=== PATIENT | female | born 1945 | race Caucasian/White ===

== ENCOUNTER → 2017-01-11 | Day surgery (SDC) | payer MEDICARE, OTHER ==
--- NOTE | 2017-01-03 06:46 | CR ---
PREOPERATIVE CONSULTATION: DATE OF CONSULTATION: 12/21/2016 CONSULTING PHYSICIAN: Dr. Ab Sanchez MD REQUESTING PHYSICIAN: Dr. Laura Moraes MD PROCEDURE: Dilation and curettage, hysteroscopy due to postmenopausal bleeding to be completed on 01/11/2017 at [facility]. HISTORY OF PRESENT ILLNESS: A very pleasant 71-year-old patient of mine presents today for preoperative evaluation and consultation in the setting of multiple medical problems. Patient overall feels well today. She denies any new symptoms or concerns. She does regularly exert herself over 3 metabolic equivalents of task (METs). She denies any chest pain or other cardiac symptoms. Has been a nonsmoker. Has had no respiratory symptoms. She denies symptoms of sleep apnea. Has never had any asthma. She does take medications as listed but has never had any complications with anesthesia and overall feels well. Only risk is a strong family history of coronary disease. PAST MEDICAL HISTORY: 1. Hyperlipidemia. 2. Gastroesophageal reflux disease (GERD). 3. Dysthymia/anxiety. 4. Hypertension (white-coat component). 5. History of impaired fasting glucose controlled with diet. PAST SURGICAL HISTORY: Cataract extraction right eye 01/05/2016, left eye 01/09/[address] 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 ALLERGIES: PENICILLIN and BIAXIN had caused hives in the past. She has had some contact dermatitis with metals. MEDICATIONS: Include: - simvastatin 40 mg by mouth nightly - omeprazole 20 mg twice a day - Prozac 20 mg daily - hydrochlorothiazide 12.5 mg by mouth daily SOCIAL HISTORY: Patient lives with her , Boo. 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 They had eight children, although one at age 3-1/2 of hydrocephalus. She has never smoked. Has about three glasses of wine per week. REVIEW OF SYSTEMS: As per history of present illness (HPI); otherwise, 10-system review is completely negative. No specific preoperative labs were requested. Prior EKG from 12/22/2015 showed sinus rhythm with some left axis deviation, minor changes, but no significant abnormalities. Most recent labs on 10/23/2016 showed hemoglobin A1c of 6.2, creatinine 0.8, BUN of 25, normal electrolytes, LFTs, controlled lipids, and a normal TSH. ASSESSMENT AND PLAN: 1. Preoperative evaluation and consultation. At this point in time, patient is relatively low to intermediate risk for a low to intermediate risk procedure. She has no major predictors of increased cardiac risk, although she does have a family history, treated hyperlipidemia, and some impaired fasting glucose. She is otherwise optimized for surgical intervention. As noted, the patient does have some white-coat hypertension, which has been monitored as an outpatient and shown to be well controlled. If you have any other questions or concerns, feel free to call me at [phone]. 2. Postmenopausal bleeding. Patient looks forward to having this completely treated and looks forward to procedure for that reason. 3. Hyperlipidemia. Doing well on simvastatin and will continue. 4. Gastroesophageal reflux disease. Unable to wean from omeprazole 20 twice a day. Will continue since it does allow good symptom control. 5. Anxiety. Feels that she is doing well on Prozac at present dose. 6. Hypertension. Although patient does have a white-coat component, generally controlled on hydrochlorothiazide. 7. Family history of early coronary disease; patient has had no symptoms suggestive of personal coronary symptoms and has been monitored closely for such due to family history. We will continue to monitor closely. 8. Ongoing care. I am going to see her as scheduled in followup. However, she understands the importance of following with Dr. Moraes and adjusting appropriate expectations for surgical intervention. If she has any problems, then she should let us know.
[~2017-01-11] VITALS: Ht 157.5 cm; Wt 78.9 kg
[~2017-01-11] MED LIST: ASPI1TAB PO; FLUO20CA8 PO; HYDR12CA PO; IBUPROFEN 600 MG TAB PO PRN; KETOROLAC 60 MG/2 ML VIAL (J1885) As Ordered ONE; LIDOCAINE 1% MDV 20ML VIAL As Ordered ONE; LIDOCAINE 2% INJ 100 MG/5 ML SDV (FOR ANES.) As Ordered ONE; LR 1,000 ML IV SCH; MEPERIDINE INJ 25 MG/ML VIAL (J2175) IV PRN; METOCLOPRAMIDE INJ 10MG/2ML VIAL (J2765) As Ordered ONE; METOCLOPRAMIDE INJ 10MG/2ML VIAL (J2765) IV PRN; MIDAZOLAM INJ 2 MG/2 ML VIAL (J2250) As Ordered ONE; MONI1CRE2 VA; OMEP20CA3 PO; ONDANSETRON 4MG/2ML VIAL (J2405) As Ordered ONE; ONDANSETRON 4MG/2ML VIAL (J2405) IV PRN; PERCOCET 5MG/325MG TAB PO PRN; PROPOFOL 200 MG/20 ML VIAL As Ordered ONE; SIMV40TA2 PO; fentaNYL 100 MCG/2 ML INJECTION (J3010) As Ordered ONE; fentaNYL 100 MCG/2 ML INJECTION (J3010) IV PRN
[2017-01-11 14:00] VITALS: BP 142/78
--- NOTE | 2017-01-11 19:05 | RO ---
DATE OF PROCEDURE: 01/11/2017 PREOPERATIVE DIAGNOSIS: Postmenopausal bleeding with abnormal ultrasound. POSTOPERATIVE DIAGNOSIS: Reassuring endometrium. There was polypoid overgrowth posteriorly which was removed with the MyoSure but not really an independent polyp. She also had a paracervical block. PROCEDURE: SURGEON: Dr. Antonette Moraes BOGGER OPERATOR: ANESTHESIA: Sedation with paracervical block. DESCRIPTION OF PROCEDURE: was brought to the operating room where sufficient sedation was given, and she was prepped, draped and positioned in the usual sterile fashion and then a paracervical block of 20 mL of 1% lidocaine without in total was given with 5 mL aliquots at 2, 4, 8 and 10 on the cervix. We then waited a full minute for that block to set up and then following this, the cervix was grasped with a single-tooth tenaculum and carefully sounded to 8 cm. It was then dilated and a hysteroscope placed. After placement of this hysteroscope, the endometrial cavity was visualized. Posteriorly, there was sort of a thickened, sort of broad flat polypoid overgrowth of the endometrium, which is not to be expected in a 71-year-old patient but it had a very smooth, bland appearance otherwise. And we were able with the MyoSure to resect this completely and to sample in a 360 degree sampling around the entirety of the uterus. The ostia themselves to the tubes were normal. There was no cervical lesion. After this, the curette was passed. There was a normal uterine cry throughout and the procedure was then ended. Estimated blood loss for the procedure was 5 mL or less. Fluid replacement was crystalloid. Complications: None. Condition and Disposition: tolerated the procedure well and was recovering in the recovery room in good condition.
== END | disposition home or self-care (01) ==
LOC: M SDC 10:55
PROVIDERS: ATTEND Obstetrics & Gynecology
DX: N95.0 Postmenopausal bleeding (principal); N85.00 Endometrial hyperplasia, unspecified; I10 Essential (primary) hypertension; E11.9 Type 2 diabetes mellitus without complications; E78.4 Other hyperlipidemia; K21.9 Gastro-esophageal reflux disease without esophagitis; F41.9 Anxiety disorder, unspecified; F32.9 Major depressive disorder, single episode, unspecified; Z88.0 Allergy status to penicillin; Z79.82 Long term (current) use of aspirin; Z79.899 Other long term (current) drug therapy
CPT/HCPCS: 58558; 88305; J1885; J2250; J2405; J2765; J3010

== ENCOUNTER → 2017-05-20 | Outpatient (REF) | payer MEDICARE, OTHER ==
[~2017-05-20] MED LIST changes: -IBUPROFEN 600 MG TAB PO PRN; -KETOROLAC 60 MG/2 ML VIAL (J1885) As Ordered ONE; -LIDOCAINE 1% MDV 20ML VIAL As Ordered ONE; -LIDOCAINE 2% INJ 100 MG/5 ML SDV (FOR ANES.) As Ordered ONE; -LR 1,000 ML IV SCH; -MEPERIDINE INJ 25 MG/ML VIAL (J2175) IV PRN; -METOCLOPRAMIDE INJ 10MG/2ML VIAL (J2765) As Ordered ONE; -METOCLOPRAMIDE INJ 10MG/2ML VIAL (J2765) IV PRN; -MIDAZOLAM INJ 2 MG/2 ML VIAL (J2250) As Ordered ONE; -ONDANSETRON 4MG/2ML VIAL (J2405) As Ordered ONE; -ONDANSETRON 4MG/2ML VIAL (J2405) IV PRN; -PERCOCET 5MG/325MG TAB PO PRN; -PROPOFOL 200 MG/20 ML VIAL As Ordered ONE; -fentaNYL 100 MCG/2 ML INJECTION (J3010) As Ordered ONE; -fentaNYL 100 MCG/2 ML INJECTION (J3010) IV PRN
== END ==
LOC: M LAB REF 21:46
PROVIDERS: ATTEND Physician Assistant Medical
DX: N39.0 Urinary tract infection, site not specified (principal)

== ENCOUNTER → 2018-08-28 | Outpatient (CLI) | payer MEDICARE, OTHER ==
--- NOTE | 2018-08-30 13:43 | SLEEPHOME ---
DATE OF PROCEDURE: 08/28/2018 ORDERED BY: Dr. Moscoso Diagnostic home sleep testing was performed due to concern for the obstructive sleep apnea syndrome in this patient with a history of snoring. For testing a nocturnal T3 respiratory monitoring device was used. Continuous record was made of pulse, oxygen saturation, airflow, chest, and abdominal strain and body position. 10 hours and 59 minutes of data were reviewed. There were 7 hours and 38 minutes marked as time in bed. During the interval marked time in bed, there were 249 respiratory events identified of 10 seconds in duration or greater for a respiratory event index of 32.6. The events were primarily obstructive. There were 18 mixed of central apneas. Baseline pulse rate 74 beats per minute. Pulse rate ranged from 61-104. Baseline saturation was 90%. Saturations fell to 77%. Testing was performed in both the supine and nonsupine positions. IMPRESSION: Abnormal home sleep testing with repetitive respiratory events and oxygen desaturations to 77% with a respiratory event index of 32.6 is consistent the obstructive sleep apnea syndrome. RECOMMENDATIONS: The patient should be encouraged to undergo formal sleep evaluation and laboratory pressure titration.
== END ==
LOC: M SLEEP HO 11:13
PROVIDERS: ATTEND Internal Medicine Cardiovascular Disease
DX: R06.83 Snoring (principal)

== ENCOUNTER → 2018-09-13 | Outpatient (REF) | payer MEDICARE, OTHER ==
[2018-09-13 13:50] LABS: BASO % 0.3 % (0.0-1.0); EOS # 0.2 10^3/uL (0.0-0.50); EOS % 2.9 % (0.0-3.0); HEMATOCRIT 37.8 % (36.0-47.0); LYMPH # 1.8 10^3/uL (1.5-4.5); LYMPH % 23.3 % (24.0-44.0); MEAN CORPUSCULAR HEMOGLOBIN 32.3 pg (27.0-33.0); MEAN CORPUSCULAR HGB CONC 34.4 g/dl (32.0-36.5); MEAN CORPUSCULAR VOLUME 93.8 fl (80.0-96.0); MONO # 0.7 10^3/uL (0.0-0.8); MONO % 8.7 % (0.0-5.0); NEUTROPHILS # 4.8 10^3/uL (1.8-7.7); NEUTROPHILS % 64.5 % (36.0-66.0); PLATELET COUNT, AUTOMATED 224 10^3/uL (150-450); RED BLOOD COUNT 4.03 10^6/uL (4.00-5.40); WHITE BLOOD COUNT 7.5 10^3/uL (4.0-10.0)
[2018-09-13 14:07] LABS: ALBUMIN 3.7 GM/DL (3.2-5.2); ALT/SGPT 33 U/L (12-78); BILIRUBIN,TOTAL 0.4 MG/DL (0.2-1.0); BLOOD UREA NITROGEN 17 MG/DL (7-18); CALCIUM LEVEL 8.9 MG/DL (8.8-10.2); CARBON DIOXIDE LEVEL 27 MEQ/L (21-32); CHLORIDE LEVEL 105 MEQ/L (98-107); CREATININE FOR GFR 0.67 MG/DL (0.55-1.30); FERRITIN 64 NG/ML (8-252); GLOMERULAR FILTRATION RATE > 60.0 (>39); GLUCOSE, FASTING 101 MG/DL (70-100); POTASSIUM SERUM 4.2 MEQ/L (3.5-5.1); RHEUMATOID FACTOR QUANT < 10.0 IU/ML (<15.0); SODIUM LEVEL 138 MEQ/L (136-145); TOTAL PROTEIN 6.8 GM/DL (6.4-8.2)
[2018-09-13 14:08] LABS: VITAMIN B12 LEVEL 807 PG/ML
[2018-09-13 14:09] LABS: FOLATE 22.7 NG/ML
[2018-09-13 14:25] LABS: ERYTHROCYTE SEDIMENTATION RATE 17 mm/hr (0-30)
[2018-09-17 12:53] LABS: ALBUMIN 4.07 GM/DL (3.29-5.55); ALBUMIN % 59.8 % (55.8-66.1); ALPHA-1-GLOBULIN % 4.2 % (2.9-4.9); ALPHA-1-GLOBULINS 0.29 GM/DL (0.17-0.41); ALPHA-2-GLOBULINS 0.85 GM/DL (0.42-0.99); ALPHA-2-GLOBULINS % 12.5 % (7.1-11.8); BETA-1-GLOBULINS 0.44 GM/DL (0.28-0.60); BETA-1-GLOBULINS % 6.4 % (4.7-7.2); BETA-2-GLOBULINS 0.36 GM/DL (0.19-0.55); BETA-2-GLOBULINS % 5.3 % (3.2-6.5); GAMMA GLOBULIN % 11.8 % (11.1-18.8)
[2018-09-17 14:13] LABS: ANTINUCLEAR ANTIBODIES DIRECT Negative (Negative); VITAMIN B1 LEVEL WHOLE BLOOD 124.8 nmol/L (66.5-200.0); VITAMIN E(ALPHA TOCOPHEROL) 11.9 mg/L (9.0-29.0)
== END ==
LOC: M LABNEURO 09:32
PROVIDERS: ATTEND Psychiatry & Neurology Neurology
DX: F09 Unspecified mental disorder due to known physiological condition (principal)

== ENCOUNTER → 2019-03-24 | Outpatient (REF) | payer MEDICARE, OTHER ==
[~2019-03-24] MED LIST changes: -ASPI1TAB PO; +ASPI81TA26 PO; -OMEP20CA3 PO; +OMEP20CA4 PO
[2019-03-24 13:52] LABS: FREE T3 2.3 PG/ML (2.2-4.0); FREE T4 0.89 NG/DL (0.76-1.46); FREE THYROXINE INDEX 2.6 % (1.3-4.8); THYROID STIMULATING HORMONE 1.71 uIU/ML (0.358-3.740); THYROXINE (T4) 7.4 UG/DL (4.5-12.0)
[2019-03-24 13:54] LABS: TOTAL T3 108.4 NG/DL (60.0-181.0)
== END ==
LOC: M LABNEURO 11:09
PROVIDERS: ATTEND Psychiatry & Neurology Neurology
DX: R94.6 Abnormal results of thyroid function studies (principal)

== ENCOUNTER → 2023-04-23 | Outpatient (REF) | payer MEDICARE, OTHER ==
[~2023-04-23] MED LIST changes: +FLUO-96 PO; -FLUO20CA8 PO; +OMEP1CAP73 PO; -OMEP20CA4 PO; -SIMV40TA2 PO; +SIMV40TA20 PO
== END ==
LOC: M LAB REF 16:24
PROVIDERS: ATTEND Family Medicine
DX: D64.9 Anemia, unspecified (principal)

== ENCOUNTER → 2023-04-24 | Outpatient (CLI) | payer MEDICARE, OTHER ==
[2023-04-24 13:37] LABS: BASO % 0.5 % (0.0-1.0); EOS # 0.2 10^3/uL (0.0-0.5); EOS % 2.9 % (0.0-3.0); HEMATOCRIT 35.4 % (36.0-47.0); HEMOGLOBIN 11.7 g/dl (12.0-15.5); LYMPH # 1.1 10^3/uL (1.5-5.0); LYMPH % 18.4 % (24.0-44.0); MEAN CORPUSCULAR HEMOGLOBIN 31.5 pg (27.0-33.0); MEAN CORPUSCULAR HGB CONC 33.1 g/dl (32.0-36.5); MEAN CORPUSCULAR VOLUME 95.2 fl (80.0-96.0); MONO # 0.5 10^3/uL (0.0-0.8); NEUTROPHILS # 4.3 10^3/uL (1.5-8.5); PLATELET COUNT, AUTOMATED 237 10^3/uL (150-450); RED BLOOD COUNT 3.72 10^6/uL (4.00-5.40); WHITE BLOOD COUNT 6.1 10^3/uL (4.0-10.0)
[2023-04-24 13:59] LABS: HEMOGLOBIN A1c 6.4 % (4.0-6.0)
[2023-04-24 14:18] LABS: ALBUMIN 3.8 G/DL (3.2-5.2); BILIRUBIN,TOTAL 0.9 MG/DL (0.3-1.2); CALCIUM LEVEL 9.4 MG/DL (8.3-10.6); CREATININE FOR GFR 0.98 MG/DL (0.55-1.30); GLOMERULAR FILTRATION RATE 58.7 (>39); POTASSIUM SERUM 4.5 MMOL/L (3.5-5.1); TOTAL PROTEIN 6.5 G/DL (5.7-8.2)
[2023-04-24 14:56] LABS: FOLATE 11.42 NG/ML (>5.4); THYROID STIMULATING HORMONE 1.997 uIU/ML (0.55-4.78)
[2023-04-26 10:28] LABS: DRVV SCREEN 40.3 SECONDS
[2023-04-26 10:32] LABS: PTT LUPUS TYPE ANTICOAG SCREEN 1.02 (0-1.20)
== END ==
LOC: M PLALAB 10:52
PROVIDERS: ATTEND Psychiatry & Neurology Neurology
DX: G62.9 Polyneuropathy, unspecified (principal)

== ENCOUNTER → 2023-10-26 | Outpatient (REF) | payer MEDICARE, OTHER | LOC: M LAB REF 12:12 | PROVIDERS: ATTEND Family Medicine | DX: D64.9 Anemia, unspecified (principal) ==